=== PATIENT | female | born 1940 | race Caucasian/White ===

== ENCOUNTER 2016-07-08 09:02 | Day surgery (SDC) | payer MEDICARE ==
[~2016-07-08 09:02] MED LIST: FENTANYL 250 MCG/5 ML AMP IV PRN; LACTATED RINGERS 1,000 ML IV SCH; MIDAZOLAM HCL 5 MG/5 ML VIAL IV PRN
[2016-07-08] MEDS ORDERED: IV START KIT ONE (09:28)
[2016-07-08] MEDS ORDERED: LACTATED RINGERS 1,000 ML ONE (09:28)
[2016-07-08] MEDS ORDERED: FENTANYL 250 MCG/5 ML AMP ONE (09:45)
[2016-07-08] MEDS ORDERED: MIDAZOLAM HCL 5 MG/5 ML VIAL ONE (09:45)
[2016-07-08] MEDS ORDERED: LIDOCAINE Viscous 2% 15 ML UDCUP ONE (09:46)
[2016-07-08] MEDS ORDERED: LIDOCAINE Viscous 2% 15 ML UDCUP PO PRN (09:50)
== END 2016-07-08 10:54 | disposition home or self-care (01) ==
LOC: SDC 09:02
PROVIDERS: ATTEND Internal Medicine Gastroenterology
PROC: 0DJD8ZZ Inspection of Lower Intestinal Tract, Via Natural or Artificial Opening Endoscopic (ICD-10-PCS; principal; 2016-07-08)
DX: Z12.11 Encounter for screening for malignant neoplasm of colon (principal); K57.30 Diverticulosis of large intestine without perforation or abscess without bleeding; Z83.71 Family history of colonic polyps
CPT/HCPCS: 45378; J3010; J2250; A9270; J7120